=== PATIENT | male | born 1945 ===

== ENCOUNTER 2020-04-23 06:59 | Day surgery (SDC) | payer OTHER ==
[~2020-04-23 06:59] MED LIST: ACUPRIL; NORVASC2.5 M1 PO; PANTOPRAZOLE SO20 MG PO; SIMVASTATIN5 MG PO
[2020-04-23] MEDS ORDERED: MIRALAX17 GM PO (11:22)
[2020-04-23] MEDS ORDERED: ULTRAM50 MG PO (11:22)
[2020-04-23] MEDS ORDERED: TYLENOL ARTHRI650 MG PO (11:22)
== END 2020-04-23 18:40 | disposition home or self-care (01) ==
LOC: CIR.AMB 06:59
PROVIDERS: ATTEND Surgery
DX: K40.90 Unilateral inguinal hernia, without obstruction or gangrene, not specified as recurrent (principal); Z20.822 Contact with and (suspected) exposure to COVID-19; D17.6 Benign lipomatous neoplasm of spermatic cord

== ENCOUNTER 2021-03-25 07:53 | Day surgery (SDC) | payer OTHER ==
[~2021-03-25 07:53] MED LIST changes: +MIRALAX17 GM PO; +TYLENOL ARTHRI650 MG PO; +ULTRAM50 MG PO
[2021-03-25] MEDS ORDERED: ULTRAM50 MG PO (10:45)
[2021-03-25] MEDS ORDERED: TYLENOL ARTHRI650 MG PO (10:45)
[2021-03-25] MEDS ORDERED: MIRALAX17 GM PO (10:45)
== END 2021-03-25 17:42 | disposition home or self-care (01) ==
LOC: CIR.AMB 07:53
PROVIDERS: ATTEND Surgery
DX: K40.90 Unilateral inguinal hernia, without obstruction or gangrene, not specified as recurrent (principal); Z20.822 Contact with and (suspected) exposure to COVID-19